=== PATIENT | female | born 2000 | race Caucasian/White ===

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

== ENCOUNTER 2022-07-19 19:37 | Emergency (ER) | payer OTHER, MEDICAID ==
--- NOTE | 2022-07-19 19:40 | ERPHSYRPT ---
- History of Present Illness Time Seen by Provider: 07/19/22 19:40 Historian: patient (Few days) Exam Limitations: no limitations Physician History: This is a 22-year-old overweight white female patient who has a history of hypothyroid and insulin-dependent diabetes and has been out of her insulin for the last few days. Her blood sugars have been running between 80 and 300. She has been vomiting for the last 2 days and noticed some shortness of breath today. She has an insulin pump that will be arriving on 07/23/2022. She is concerned about dehydration and possible DKA symptoms. She is unable to hold any fluids down orally. Patient does not want a COVID test. Timing/Duration: day(s) Activities at Onset: none Abdominal Pain Onset Location: generalized abdomen (Mild diffuse) Pain Radiation: no radiation Severity of Pain-Max: mild Severity of Pain-Current: mild Associated Symptoms: nausea, vomiting, weakness, No fever/chills Previous symptoms: same symptoms as today (In the distant past) Allergies/Adverse Reactions: prochlorperazine [From Compazine] Adverse Reaction (Mild, Verified 07/19/22 20:01) Home Medications: Atorvastatin Calcium [Lipitor 20MG Tablet] 20 mg PO DAILY 07/19/22 [History] Escitalopram Oxalate [Lexapro] 20 mg PO DAILY 07/19/22 [History] Insulin Lispro [Admelog] 0 unit SQ DAILY 07/19/22 [History] Levothyroxine Sodium [Euthyrox] 75 mcg PO DAILY 07/19/22 [History] Hx Tetanus, Diphtheria Vaccination/Date Given: Yes Hx Influenza Vaccination/Date Given: Yes Hx Pneumococcal Vaccination/Date Given: No Travel Risk - International Travel Have you traveled outside of the country in past 3 weeks: No - Coronavirus Screening Are you exhibiting any of the following symptoms?: Yes Symptoms: Vomiting/Diarrhea, Headaches/Body Aches/Fatigue Close contact with a COVID-19 positive Pt in past 14-21 Days: No - Review of Systems Constitutional: Weakness Eyes: No Symptoms Ears, Nose, & Throat: No Symptoms Respiratory: Dyspnea (Mild) Cardiac: No Symptoms Abdominal/Gastrointestinal: Nausea, Vomiting, No Abdominal Pain, No Diarrhea, No Constipation Genitourinary Symptoms: No Symptoms Musculoskeletal: No Symptoms Skin: No Symptoms Neurological: No Symptoms Psychological: No Symptoms Endocrine: No Symptoms Hematologic/Lymphatic: No Symptoms Immunological/Allergic: No Symptoms All Other Systems: Reviewed and Negative - Past Medical History Pertinent Past Medical History: Yes Neurological History: No Pertinent History ENT History: No Pertinent History Cardiac History: No Pertinent History Respiratory History: No Pertinent History Endocrine Medical History: Diabetes Type I, Hypothyroidism Musculoskeletal History: No Pertinent History GI Medical History: No Pertinent History History: No Pertinent History Psycho-Social History: No Pertinent History Female Reproductive Disorders: No Pertinent History - Past Surgical History Past Surgical History: No Neuro Surgical History: No Pertinent History Cardiac: No Pertinent History Respiratory: No Pertinent History Gastrointestinal: No Pertinent History Genitourinary: No Pertinent History Musculoskeletal: No Pertinent History Female Surgical History: No Pertinent History - Social History Smoking Status: Never smoker Exposure to second hand smoke: No Drug Use: none Patient Lives Alone: No - Nursing Vital Signs Nursing Vital Signs: Initial Vital Signs Temperature 97.7 F 07/19/22 19:43 Pulse Rate 86 07/19/22 19:43 Respiratory Rate 20 07/19/22 19:43 Blood Pressure 127/91 07/19/22 19:43 O2 Sat by Pulse Oximetry 99 07/19/22 19:43 Pain Scale Pain Intensity 0 - Physical Exam General Appearance: no apparent distress, alert, anxiety, obese Eye Exam: PERRL/EOMI, eyes nml inspection Ears, Nose, Throat Exam: normal ENT inspection, moist mucous membranes Neck Exam: normal inspection, non-tender, supple, full range of motion Respiratory Exam: normal breath sounds, lungs clear, airway intact, No chest tenderness, No respiratory distress Cardiovascular Exam: regular rate/rhythm, normal heart sounds, normal peripheral pulses Gastrointestinal/Abdomen Exam: soft, normal bowel sounds, No tenderness Pelvic Exam: not done Rectal Exam: not done Back Exam: normal inspection, normal range of motion, No CVA tenderness, No vertebral tenderness Extremity Exam: normal inspection, normal range of motion, pelvis stable Neurologic Exam: alert, oriented x 3, cooperative, 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 as tested, normal mood/affect, nml cerebellar function, nml station & gait, sensation nml Skin Exam: normal color, warm, dry Lymphatic Exam: No adenopathy SpO2 Interpretation: normal O2 Delivery: Room Air - Course Nursing assessment & vital signs reviewed: Yes Ordered Tests: Active Orders 24 hr Category Date Time Status IV Insertion STAT Care 07/19/22 20:03 Active POCT Glucose Check STAT Care 07/19/22 19:58 Active AMYLASE Stat Lab 07/19/22 20:32 Completed CBC W DIFF Stat Lab 07/19/22 20:32 Completed CMP Stat Lab 07/19/22 20:32 Completed HCG,QUALITATIVE URINE Stat Lab 07/19/22 20:05 Completed Lactic Acid Stat Lab 07/19/22 20:30 Completed POCT GLUCOSE Stat Lab 07/19/22 19:56 Completed POCT GLUCOSE Stat Lab 07/19/22 21:50 Completed T4 (Thyroxine) Stat Lab 07/19/22 20:32 Completed TSH [TSH, 3RD Generation] Stat Lab 07/19/22 20:32 Completed UA W/RFX CULTURE Stat Lab 07/19/22 20:05 Completed Medication Summary Generic Name Dose Route Start Last Admin Trade Name Freq PRN Reason Stop Dose Admin Sodium Chloride 1,000 mls @ 999 mls/hr 07/19/22 21:28 07/19/22 21:30 Sodium Chloride 0.9% 1000 Ml IV 07/19/22 22:28 999 mls/hr .Q1H1M STA Administration Discontinued Medications Generic Name Dose Route Start Last Admin Trade Name Freq PRN Reason Stop Dose Admin Sodium Chloride 1,000 mls @ 999 mls/hr 07/19/22 20:03 07/19/22 21:10 Sodium Chloride 0.9% 1000 Ml IV 07/19/22 21:03 Infused .Q1H1M STA Infusion Sodium Chloride Confirm 07/19/22 20:07 Sodium Chloride 0.9% 1000 Ml Administered 07/19/22 20:08 Dose 1,000 mls @ ud .ROUTE .STK-MED ONE Promethazine HCl 25 mg/ Sodium 101 mls @ 200 mls/hr 07/19/22 20:46 07/19/22 20:51 Chloride IV 07/19/22 21:16 200 mls/hr STAT ONE Administration Sodium Chloride Confirm 07/19/22 20:48 Sodium Chloride 0.9% Administered 07/19/22 20:49 Dose 100 mls @ ud .ROUTE .STK-MED ONE Sodium Chloride Confirm 07/19/22 21:30 Sodium Chloride 0.9% 1000 Ml Administered 07/19/22 21:31 Dose 1,000 mls @ ud .ROUTE .STK-MED ONE Ondansetron HCl 4 mg 07/19/22 20:03 07/19/22 20:09 Ondansetron Hcl 4 Mg/2 Ml Vial IV 07/19/22 20:04 4 mg STAT ONE Administration Ondansetron HCl Confirm 07/19/22 20:06 Ondansetron Hcl 4 Mg/2 Ml Vial Administered 07/19/22 20:07 Dose 4 mg .ROUTE .STK-MED ONE Pantoprazole Sodium 40 mg 07/19/22 20:03 07/19/22 20:10 Pantoprazole 40 Mg Vial IV 07/19/22 20:04 40 mg STAT ONE Administration Pantoprazole Sodium Confirm 07/19/22 20:06 Pantoprazole 40 Mg Vial Administered 07/19/22 20:07 Dose 40 mg IV .STK-MED ONE Promethazine HCl Confirm 07/19/22 20:48 Promethazine Hcl 25 Mg/Ml Vial Administered 07/19/22 20:49 Dose 25 mg .ROUTE .STK-MED ONE Lab/Rad Data: Laboratory Result Diagrams 07/19/22 20:32 07/19/22 20:32 Laboratory Results 07/19/22 07/19/22 07/19/22 Range/Units 21:50 20:32 20:32 WBC (4.0-10.5) x10^3/uL RBC (4.1-5.4) x10^6/uL Hgb (12.0-16.0) g/dL Hct (35-47) % MCV (78-100) fL MCH (26-32) pg MCHC (32-36) g/dL RDW (11.5-14.0) % Plt Count (150-450) x10^3/uL MPV (7.5-11.0) fL Gran % (36.0-66.0) % Immature Gran % (Auto) (0.00-0.4) % Nucleat RBC Rel Count (0.00-0.1) % Eos # (Auto) (0-0.5) x10^3/uL Immature Gran # (Auto) (0.00-0.03) x10^3u/L Absolute Lymphs (auto) (1.0-4.6) x10^3/uL Absolute Monos (auto) (0.0-1.3) x10^3/uL Absolute Nucleated RBC (0.00-0.01) x10^3u/L Lymphocytes % (24.0-44.0) % Monocytes % (0.0-12.0) % Eosinophils % (0.00-5.0) % Basophils % (0.0-0.4) % Absolute Granulocytes (1.4-6.9) x10^3/uL Basophils # (0-0.4) x10^3/uL Sodium (137-145) mmol/L Potassium (3.5-5.1) mmol/L Chloride (98-107) mmol/L Carbon Dioxide (22-30) mmol/L Anion Gap (5-15) MEQ/L BUN (7-17) mg/dL Creatinine (0.52-1.04) mg/dL Estimated GFR ML/MIN Glucose (74-106) mg/dL POC Glucometer 149 H (74 to 106) mg/dL Lactic Acid (0.4-2.0) Calcium (8.4-10.2) mg/dL Total Bilirubin (0.2-1.3) mg/dL AST (14-36) U/L ALT (0-35) U/L Alkaline Phosphatase (38-126) U/L Serum Total Protein (6.3-8.2) g/dL Albumin (3.5-5.0) g/dL Amylase (30-110) U/L Thyroxine (T4) 7.23 (5.53-10.96) ug/dL TSH 3rd Generation 1.900 (0.47-4.68) mIU/L Urinalys Dipstick Clnc Urine Color (YELLOW) Urine Appearance (CLEAR) Urine pH (5-6) Ur Specific [place] (1.005-1.025) POC Urine Protein Conf (Negative) Urine Ketones (NEGATIVE) Urine Nitrite (NEGATIVE) Urine Bilirubin (NEGATIVE) Urine Urobilinogen (0-1) mg/dL Urine Leukocytes (NEGATIVE) Urine WBC (Auto) (0-5) /HPF Urine RBC (Auto) (0-2) /HPF U Epithel Cells (Auto) (FEW) /HPF Urine Bacteria (Auto) (NEGATIVE) /HPF Urine RBC (0-5) Lazaro/ul Urine Mucus (Auto) (NEGATIVE) /HPF Ur Culture Indicated? Urine Glucose (NEGATIVE) mg/dL Urine HCG, Qual (Negative) 07/19/22 07/19/22 07/19/22 Range/Units 20:32 20:32 20:30 WBC 8.9 (4.0-10.5) x10^3/uL RBC 4.46 (4.1-5.4) x10^6/uL Hgb 13.1 (12.0-16.0) g/dL Hct 41.0 (35-47) % MCV 91.9 (78-100) fL MCH 29.4 (26-32) pg MCHC 32.0 (32-36) g/dL RDW 12.4 (11.5-14.0) % Plt Count 440 (150-450) x10^3/uL MPV 10.5 (7.5-11.0) fL Gran % 67.9 H (36.0-66.0) % Immature Gran % (Auto) 0.2 (0.00-0.4) % Nucleat RBC Rel Count 0.0 (0.00-0.1) % Eos # (Auto) 0.08 (0-0.5) x10^3/uL Immature Gran # (Auto) 0.02 (0.00-0.03) x10^3u/L Absolute Lymphs (auto) 2.39 (1.0-4.6) x10^3/uL Absolute Monos (auto) 0.29 (0.0-1.3) x10^3/uL Absolute Nucleated RBC 0.00 (0.00-0.01) x10^3u/L Lymphocytes % 27.0 (24.0-44.0) % Monocytes % 3.3 (0.0-12.0) % Eosinophils % 0.9 (0.00-5.0) % Basophils % 0.7 (0.0-0.4) % Absolute Granulocytes 6.01 (1.4-6.9) x10^3/uL Basophils # 0.06 (0-0.4) x10^3/uL Sodium 134 L (137-145) mmol/L Potassium 3.7 (3.5-5.1) mmol/L Chloride 100 (98-107) mmol/L Carbon Dioxide 24 (22-30) mmol/L Anion Gap 14.1 (5-15) MEQ/L BUN 13 (7-17) mg/dL Creatinine 0.55 (0.52-1.04) mg/dL Estimated GFR > 60.0 ML/MIN Glucose 289 H (74-106) mg/dL POC Glucometer (74 to 106) mg/dL Lactic Acid 3.2 H (0.4-2.0) Calcium 9.3 (8.4-10.2) mg/dL Total Bilirubin 1.20 (0.2-1.3) mg/dL AST 28 (14-36) U/L ALT 21 (0-35) U/L Alkaline Phosphatase 88 (38-126) U/L Serum Total Protein 8.0 (6.3-8.2) g/dL Albumin 4.4 (3.5-5.0) g/dL Amylase 80 (30-110) U/L Thyroxine (T4) (5.53-10.96) ug/dL TSH 3rd Generation (0.47-4.68) mIU/L Urinalys Dipstick Clnc Urine Color (YELLOW) Urine Appearance (CLEAR) Urine pH (5-6) Ur Specific [place] (1.005-1.025) POC Urine Protein Conf (Negative) Urine Ketones (NEGATIVE) Urine Nitrite (NEGATIVE) Urine Bilirubin (NEGATIVE) Urine Urobilinogen (0-1) mg/dL Urine Leukocytes (NEGATIVE) Urine WBC (Auto) (0-5) /HPF Urine RBC (Auto) (0-2) /HPF U Epithel Cells (Auto) (FEW) /HPF Urine Bacteria (Auto) (NEGATIVE) /HPF Urine RBC (0-5) Lazaro/ul Urine Mucus (Auto) (NEGATIVE) /HPF Ur Culture Indicated? Urine Glucose (NEGATIVE) mg/dL Urine HCG, Qual (Negative) 07/19/22 07/19/22 07/19/22 Range/Units 20:05 20:05 19:56 WBC (4.0-10.5) x10^3/uL RBC (4.1-5.4) x10^6/uL Hgb (12.0-16.0) g/dL Hct (35-47) % MCV (78-100) fL MCH (26-32) pg MCHC (32-36) g/dL RDW (11.5-14.0) % Plt Count (150-450) x10^3/uL MPV (7.5-11.0) fL Gran % (36.0-66.0) % Immature Gran % (Auto) (0.00-0.4) % Nucleat RBC Rel Count (0.00-0.1) % Eos # (Auto) (0-0.5) x10^3/uL Immature Gran # (Auto) (0.00-0.03) x10^3u/L Absolute Lymphs (auto) (1.0-4.6) x10^3/uL Absolute Monos (auto) (0.0-1.3) x10^3/uL Absolute Nucleated RBC (0.00-0.01) x10^3u/L Lymphocytes % (24.0-44.0) % Monocytes % (0.0-12.0) % Eosinophils % (0.00-5.0) % Basophils % (0.0-0.4) % Absolute Granulocytes (1.4-6.9) x10^3/uL Basophils # (0-0.4) x10^3/uL Sodium (137-145) mmol/L Potassium (3.5-5.1) mmol/L Chloride (98-107) mmol/L Carbon Dioxide (22-30) mmol/L Anion Gap (5-15) MEQ/L BUN (7-17) mg/dL Creatinine (0.52-1.04) mg/dL Estimated GFR ML/MIN Glucose (74-106) mg/dL POC Glucometer 279 H (74 to 106) mg/dL Lactic Acid (0.4-2.0) Calcium (8.4-10.2) mg/dL Total Bilirubin (0.2-1.3) mg/dL AST (14-36) U/L ALT (0-35) U/L Alkaline Phosphatase (38-126) U/L Serum Total Protein (6.3-8.2) g/dL Albumin (3.5-5.0) g/dL Amylase (30-110) U/L Thyroxine (T4) (5.53-10.96) ug/dL TSH 3rd Generation (0.47-4.68) mIU/L Urinalys Dipstick Clnc MAIN LAB Urine Color YELLOW (YELLOW) Urine Appearance CLEAR (CLEAR) Urine pH 6.0 (5-6) Ur Specific [place] 1.000 (1.005-1.025) POC Urine Protein Conf NEGATIVE (Negative) Urine Ketones SMALL-15 (NEGATIVE) Urine Nitrite NEGATIVE (NEGATIVE) Urine Bilirubin NEGATIVE (NEGATIVE) Urine Urobilinogen 0.2 (0-1) mg/dL Urine Leukocytes NEGATIVE (NEGATIVE) Urine WBC (Auto) 0-2 (0-5) /HPF Urine RBC (Auto) NONE (0-2) /HPF U Epithel Cells (Auto) RARE (FEW) /HPF Urine Bacteria (Auto) NONE (NEGATIVE) /HPF Urine RBC NEGATIVE (0-5) Lazaro/ul Urine Mucus (Auto) SLIGHT (NEGATIVE) /HPF Ur Culture Indicated? NO Urine Glucose 500 (NEGATIVE) mg/dL Urine HCG, Qual NEGATIVE (Negative) - Progress Progress: improved Progress Note: 07/19/22 21:53 Patient has tolerated Phenergan well. Her symptoms have improved. 07/19/22 22:08 Patient states that she is feeling much better. She still has another liter that will be infused. She does not want to be admitted or transferred. She is tolerating clear liquids. She now has insulin at home Counseled pt/family regarding: lab results, diagnosis, need for follow-up - Departure Departure Disposition: Home Clinical Impression: Hyperglycemia due to type 1 diabetes mellitus, Vomiting, Mild dehydration Condition: Stable Critical Care Time: No Referrals: VIANEY GAO NP [Primary Care Provider] - Follow up/PCP as directed Additional Instructions: Drink plenty of clear liquids. Monitor your blood sugar closely. Treat your blood sugar according to your diabetic medication instructions from your provider. Prescriptions: Promethazine HCl 25 mg [Phenergan 25 mg] 25 mg PO Q8H PRN PRN #10 tablet PRN Reason: Nausea/Vomiting
[2022-07-19] MEDS ORDERED: PROTONIX 40 MG IV IV ONE ×2 (20:03→20:06)
[2022-07-19] MEDS ORDERED: Sodium Chloride 0.9% 1000 ML 1,000 ML IV STA ×2 (20:03→21:28)
[2022-07-19] MEDS ORDERED: Zofran 4 MG/2 ML VIAL IV ONE (20:03)
[2022-07-19] MEDS ORDERED: Zofran 4 MG/2 ML VIAL ONE (20:06)
[2022-07-19] MEDS ORDERED: Sodium Chloride 0.9% 1000 ML 1,000 ML ONE ×2 (20:07→21:30)
[2022-07-19 20:14] LABS: Appearance CLEAR (CLEAR); Bilirubin NEGATIVE (NEGATIVE); Dipstick done @ ? MAIN LAB; Glucose 500 mg/dL (NEGATIVE); Ketones SMALL-15 (NEGATIVE); Nitrite NEGATIVE (NEGATIVE); Protein,Urine Dip NEGATIVE (Negative); RBC NEGATIVE Ery/ul (0-5); Urobilinogen 0.2 mg/dL (0-1)
[2022-07-19 20:18] LABS: Epithelial Cells RARE /HPF (FEW); Mucus SLIGHT /HPF (NEGATIVE); WBC 0-2 /HPF (0-5)
[2022-07-19 20:19] LABS: Urine Cultured Indicated? NO
[2022-07-19 20:36] LABS: Absolute Neutrophil Ct (ANC) 6.01 x10^3/uL (1.4-6.9); Basophil (Absolute #) 0.06 x10^3/uL (0-0.4); Eosinophil % 0.9 % (0.00-5.0); Eosinophil (Absolute #) 0.08 x10^3/uL (0-0.5); Hemoglobin 13.1 g/dL (12.0-16.0); Lymphocyte (Absolute #) 2.39 x10^3/uL (1.0-4.6); Mean Cell Volume 91.9 fL (78-100); Mean Corpuscular Hemoglobin 29.4 pg (26-32); Mean Platelet Volume 10.5 fL (7.5-11.0); Monocyte (Absolute #) 0.29 x10^3/uL (0.0-1.3); Monocytes % 3.3 % (0.0-12.0); Neutrophil % 67.9 % (36.0-66.0); Platelet Count 440 x10^3/uL (150-450); Red Blood Count 4.46 x10^6/uL (4.1-5.4); Red Cell Distribution Width 12.4 % (11.5-14.0); White Blood Count 8.9 x10^3/uL (4.0-10.5)
[2022-07-19] MEDS ORDERED: Phenergan 25 MG INJ*** 25 MG in Sodium Chloride 0.9% 100 ML IV ONE (20:46)
[2022-07-19] MEDS ORDERED: Phenergan 25 MG INJ ONE (20:48)
[2022-07-19] MEDS ORDERED: Sodium Chloride 0.9% 100 ML ONE (20:48)
[2022-07-19 21:15] LABS: ALBUMIN 4.4 g/dL (3.5-5.0); ALKALINE PHOSPHATASE 88 U/L (38-126); AMYLASE 80 U/L (30-110); ANION GAP 14.1 MEQ/L (5-15); BLOOD UREA NITROGEN 13 mg/dL (7-17); CHLORIDE 100 mmol/L (98-107); Calcium 9.3 mg/dL (8.4-10.2); Carbon Dioxide 24 mmol/L (22-30); Creatinine 1 0.55 mg/dL (0.52-1.04); EST GLOMERULAR FILTRATION RATE > 60.0 ML/MIN; Glucose 289 mg/dL (74-106); Potassium 3.7 mmol/L (3.5-5.1); SGOT/AST 28 U/L (14-36); SGPT/ALT 21 U/L (0-35); SODIUM 134 mmol/L (137-145)
[2022-07-19 22:03] VITALS: BP 108/70; PULSE 88; O2SAT 98
== END 2022-07-19 22:44 | disposition home or self-care (01) ==
LOC: ED 19:37
DX: E10.65 Type 1 diabetes mellitus with hyperglycemia (principal); R11.2 Nausea with vomiting, unspecified; E86.0 Dehydration; R06.02 Shortness of breath; Z79.899 Other long term (current) drug therapy
CPT/HCPCS: 36000; 36415; 80053; 81015; 81025; 82150; 82947; 83605; 84436; 84443; 85025; 96360; 96374; 96375; 99284; J2405; J2550